=== PATIENT | female | born 2000 | race Two or more races ===

== ENCOUNTER 2023-02-23 10:52 | Outpatient (REF) | payer MEDICAID, SELFPAY ==
[2023-02-23 13:16] LABS: MANUAL DIFF FLAG NO
[2023-02-23 13:23] LABS: Basophils Absolute Auto 0.1 X10*3/uL (0.0-0.2); Eosinophils Absolute Auto 0.1 X10*3/uL (0.0-0.4); Eosinophils Percent Auto 0.8 % (0-4); Hematocrit 39.6 % (37.0-47.0); Hemoglobin 12.9 g/dl (12.0-16.0); Imm Gran Abs Auto 0.03 X10*3/uL (0.00-0.03); Imm Gran Pct Auto 0.4 % (0.0-0.4); Lymphocytes Absolute Auto 2.2 X10*3/uL (1.2-4.9); Lymphocytes Percent Auto 29.9 % (20-40); Mean Corpuscular HGB Conc 32.6 g/dl (31.0-35.0); Mean Corpuscular Hemoglobin 28.6 pg (27.0-33.0); Mean Corpuscular Volume 87.8 fL (80.0-98.0); Mean Platelet Volume 10.3 fL (9.4-12.3); Monocytes Absolute Auto 0.7 X10*3/uL (0.1-1.2); Monocytes Percent Auto 9.9 % (2-11); Neutrophils Absolute Auto 4.2 x10*3/uL (2.0-8.3); Platelet Count 423 X10*3/uL (160-400); Red Blood Count 4.51 X10*6/uL (4.20-5.50); Red Cell Distribution Width 14.5 % (11.0-16.0); White Blood Count 7.3 X10*3/uL (4.8-10.8)
[2023-02-23 13:42] LABS: Estimated Average Glucose 91 mg/dL; Hemoglobin A1c % 4.8 % (<6.0)
[2023-02-23 14:09] LABS: Cholesterol 202 mg/dL (<200); HDL Cholesterol 49 mg/dL (>40); LDL Cholesterol Calculated 140 mg/dL (<100); Triglycerides 69 mg/dL (<150)
[2023-02-23 16:08] LABS: CT PCR NOT DETECTED (Not Detect.); NG PCR NOT DETECTED (Not Detect.)
[2023-02-24 03:45] LABS: ~HepC Num1 0.67 S/CO (0.00-0.79); ~Hepatitis C Antibody Nonreactive (Nonreactive)
[2023-03-02 13:14] LABS: Testosterone, Total 229 ng/dL (2-45)
== END 2023-02-23 10:53 | disposition home or self-care (01) ==
LOC: HO.HHCL 10:52
PROVIDERS: Visit Provider Family Medicine
DX: Z00.00 Encounter for general adult medical examination without abnormal findings (principal); F64.9 Gender identity disorder, unspecified
CPT/HCPCS: 0353U; 80061; 83036; 84403; 85025; 86803

== ENCOUNTER 2023-11-15 11:22 | Outpatient (REF) | payer MEDICAID, SELFPAY ==
[2023-11-15 13:17] LABS: Hematocrit 39.1 % (37.0-47.0); Hemoglobin 12.8 g/dl (12.0-16.0); Mean Corpuscular HGB Conc 32.7 g/dl (31.0-35.0); Mean Corpuscular Hemoglobin 28.8 pg (27.0-33.0); Mean Corpuscular Volume 88.1 fL (80.0-98.0); Mean Platelet Volume 10.5 fL (9.4-12.3); Platelet Count 315 X10*3/uL (160-400); Red Blood Count 4.44 X10*6/uL (4.20-5.50); Red Cell Distribution Width 13.7 % (11.0-16.0); White Blood Count 6.2 X10*3/uL (4.8-10.8)
[2023-11-15 13:38] LABS: Alanine Aminotransferase 18 U/L (0-31); Albumin Level 4.2 g/dL (3.5-5.0); Alkaline Phosphatase 78 U/L (39-117); Aspartate Amino Transferase 24 U/L (5-31); Bilirubin Direct 0.1 mg/dL (0.0-0.5); Bilirubin Total 0.4 mg/dL (0.0-1.0); Cholesterol 191 mg/dL (<200); HDL Cholesterol 36 mg/dL (>40); LDL Cholesterol Calculated 138 mg/dL (<100); Total Protein 7.2 g/dL (6.5-8.0); Triglycerides 89 mg/dL (<150)
[2023-11-15 14:51] LABS: CT PCR NOT DETECTED (Not Detect.); NG PCR NOT DETECTED (Not Detect.)
[2023-11-16 04:34] LABS: HIV AB/AG Nonreactive (Nonreactive); HIV Num 1 0.05 S/CO (0.00-0.99); ~HepC Num1 0.56 S/CO (0.00-0.79); ~Hepatitis C Antibody Nonreactive (Nonreactive)
[2023-11-20 03:13] LABS: Testosterone, Total 499 ng/dL (2-45)
== END 2023-11-15 11:23 | disposition home or self-care (01) ==
LOC: HO.HHCL 11:22
PROVIDERS: Visit Provider Family Medicine
DX: E78.5 Hyperlipidemia, unspecified (principal); F64.0 Transsexualism; Z11.3 Encounter for screening for infections with a predominantly sexual mode of transmission
CPT/HCPCS: 0353U; 36415; 80061; 80076; 84403; 85027; 86803; 87389

== ENCOUNTER 2024-06-12 12:17 | Outpatient (REF) | payer MEDICAID, SELFPAY ==
[2024-06-12 13:08] LABS: MANUAL DIFF FLAG NO
[2024-06-12 13:15] LABS: Basophils Absolute Auto 0.1 X10*3/uL (0.0-0.2); Basophils Percent Auto 1.2 % (0-2); Eosinophils Absolute Auto 0.1 X10*3/uL (0.0-0.4); Eosinophils Percent Auto 0.7 % (0-4); Hematocrit 39.7 % (37.0-47.0); Hemoglobin 12.7 g/dl (12.0-16.0); Imm Gran Abs Auto 0.02 X10*3/uL (0.00-0.03); Imm Gran Pct Auto 0.2 % (0.0-0.4); Lymphocytes Absolute Auto 3.3 X10*3/uL (1.2-4.9); Lymphocytes Percent Auto 38.7 % (20-40); Mean Corpuscular Hemoglobin 28.9 pg (27.0-33.0); Mean Corpuscular Volume 90.2 fL (80.0-98.0); Mean Platelet Volume 10.8 fL (9.4-12.3); Monocytes Absolute Auto 0.7 X10*3/uL (0.1-1.2); Monocytes Percent Auto 8.7 % (2-11); Neutrophils Absolute Auto 4.3 x10*3/uL (2.0-8.3); Neutrophils Percent Auto 50.5 % (45-73); Platelet Count 330 X10*3/uL (160-400); Red Cell Distribution Width 13.6 % (11.0-16.0); White Blood Count 8.5 X10*3/uL (4.8-10.8)
[2024-06-12 13:29] LABS: Cholesterol 232 mg/dL (<200); HDL Cholesterol 34 mg/dL (>40); LDL Cholesterol Calculated 133 mg/dL (<100); Triglycerides 326 mg/dL (<150)
[2024-06-13 04:38] LABS: HIV AB/AG Nonreactive (Nonreactive); HIV Num 1 0.05 S/CO (0.00-0.99)
== END 2024-06-12 12:18 | disposition home or self-care (01) ==
LOC: HO.HHCL 12:17
PROVIDERS: Visit Provider Family Medicine
DX: F64.9 Gender identity disorder, unspecified (principal); F64.0 Transsexualism; Z11.3 Encounter for screening for infections with a predominantly sexual mode of transmission
CPT/HCPCS: 36415; 80061; 85025; 87389

== ENCOUNTER 2025-02-26 13:08 | Outpatient (REF) | payer MEDICAID, SELFPAY ==
--- OUTSIDE RECORDS SUMMARY | 2025-02-25 11:30 | XMS_ITS | Encounter Summary ---
Author Organization [employer] Address [address] [facility] 7t [place] [address] Care Team Providers Care Contamination Consultant Name Role Phone Padmini Walton MD Primary Care Provider [phone]- [phone] Hany Davis MD Unavailable Jalyn Sheriff OD Unavailable [phone] Encounter Details Date Type Department Care Team (Late st Contact Info) Description 02/25/2025 11:30 AM EDT Telemedicine [facility] MEDICINE [address] [place] [address] Padmini Walton MD [address] [place] [address] HSV-1 infection (Primary Dx); Routine screening for STI (sexually transmitted infection); Gender dysphoria; Dyslipidemia Social History Tobacco Use Types Packs/Day Years Used Date Smoking Tobacco: Never Passive Smoke Exposure: Never Smokeless Tobacco: Never Depression Answer Date Recorded Patient Health Questionnaire-9 Score 0 02/19/2025 Patient Health Questionnaire-9 Score 0 02/19/2025 Last PHQ-9: Questionnaire Data Not on file 0 02/19/2025 Housing Stability Answer Date Recorded What is your housing situation today? I have rayo jennings 05/14/[address] you li ve. Do you have problems with any of the following? None of the above 05/14/2024 Food Insecurity Answer Date Recorded Within the past 12 months, y ou worried that your food would run out before you got money to buy more: Never True 12/17/2023 Within the past 12 months,th e food you bought just didn't last and you didn't have enough money to get more: Never True Transportation Answer Date Recorded In the past 12 months, has l ack of transportation kept you from medical appts, meetings, work or from getting things needed for daily living? No 12/17/2023 Utilities Answer Date Recorded In the past 12 months, has t he [employer], gas, oil or water [employer] threatened to shut off services in your home? No 12/17/2023 Depression Answer Date Recorded Patient Health Questionnaire-2 Score 0 02/19/2025 Internet Access Answer Date Recorded Internet Access Q1 No 02/20/2025 Internet Access Q2 I do not want or need it 01/27 Comments Unknown Sex and Gender Information Value Date Recorded Sex Assigned at Female 03/27/2022 10:20 AM EDT Legal Sex Female 1:53 PM EST Gender Identity Male 04/19/2022 1:53 PM EST Sexual Orientation Lesbian or Kumari 03/27/2022 10 :20 AM EDT documented as of this encounter Progress Notes * Padmini Walton MD - 02/25/2025 11:30 AM EDT Subjective Patient ID: Jacob Gamez is a 24 y.o. adult who was contacted for televisit for positive HSV 1 culture. Seen in ER 02/16/25 with headache but also reported vaginal rash. Vesicular rash noted on exam and he was treated for HSV infection. Culture positive for HSV-1 type infection. Symptoms resolved. Pt states only has one partner and is concerned for false positive result. His partner did have a lesion on her lip recently suggestive of HSV infection. Assessment & Plan HSV-1 infection Pt would like blood test for confirmation but he understands the history and HSV culture suggest hehad HSV 1 infection in the genital area. Harm reduction discussed. Discussed starting medication for any symptoms of recurrence. Orders: acyclovir (Zovirax) 800 MG tablet; Take 3 tabs a day for 2 days Herpes Simplex Virus 1 and 2 (IgG), Type-Specific Antibodies; Future Routine screening for STI (sexually transmitted infection) Orders: Hepatitis C Antibody with Reflex to HCV, RNA, Quantitative, Real-Time PCR; Future HIV-1/2 Antigen and Antibodies, Fourth Generation, with Reflexes; Future Syphilis Screen; Future Chlamydia/N. Gonorrhoeae, PCR, Urine Gender dysphoria Orders: Hepatic Function Panel; Future CBC; Future Testosterone, Total, males (Adult), IA; Future Dyslipidemia Orders: Lipid Panel, Standard; Future Future Appointments Date Time Provider Department Center 02/25/2025 11:30 AM Padmini Walton MD MEDICINE [facility] 04/03/2025 10:30 AM Padmini Walton MD [facility] documented in this encounter Miscellaneous Notes * Assessment & Plan Note - Padmini Walton MD - 02/25/2025 11:30 AM EDT Associated Problem(s): Gender dysphoria Orders: Hepatic Function Panel; Future CBC; Future Testosterone, Total, males (Adult), IA; Future * Assessment & Plan Note - Padmini Walton MD - 02/25/2025 11:30 AM EDT Associated Problem(s): Dyslipidemia Orders: Lipid Panel, Standard; Future documented in this encounter Plan of Treatment Upcoming Encounters Date Type Department Care Team (Late st Contact Info) Description 04/03/2025 10:30 AM EST Procedure Visit [facility] MEDICINE [address] [place] [address] Padmini Walton MD [address] [place] [address] Scheduled Orders Name Type Priority Associated Diagnoses Orde r Schedule Herpes Simplex Virus 1 and 2 (IgG), Type-Specific Antibodies Lab Routine HSV-1 infection Expected: 02/25/2025 (Approximate), Expires: 02/25/2026 Hepatic Function Panel Lab Routine Gender dysphoria Expected: 02/25/2025 (Approximate), Expires: 02/25/2026 CBC Lab Routine Gender dysphoria Expected: 02/25/2025, Expires: 02/25/2026 Testosterone, Total, males (Adult), IA Lab Routine Gender dysphoria Expected: 02/25/2025, Expires: 02/25/2026 Lipid Panel, Standard Lab Routine Dyslipidemia Expected: 02/25/2025 (Approximate), Expires: 02/25/2026 Hepatitis C Antibody with Reflex to HCV, RNA, Quantitative, Real-Time PCR Lab Routine Routine screening for STI (sexually transmitted infection) Expected: 02/25/2025 (Approximate), Expires: 02/25/2026 HIV-1/2 Antigen and Antibodies, Fourth Generation, with Reflexes Lab Routine Routine screening for STI (sexually transmitted infection) Expected: 02/25/2025 (Approximate), Expires: 02/25/2026 Syphilis Screen Lab Routine Routine screening for STI (sexually transmitted infection) Expected: 02/25/2025 (Approximate), Expires: 02/25/2026 Chlamydia/N. Gonorrhoeae, PCR, Urine Lab Routine Routine screening for STI (sexually transmitted infection) Ordered: 02/25/2025 documented as of this encounter Visit Diagnoses Diagnosis HSV-1 infection- Primary Herpes simplex without mention of complication Routine screening for STI (sexually transmitted infection) Screening examination for venereal disease Gender dysphoria Dyslipidemia Other and unspecified hyperlipidemia documented in this encounter Additional Health Concerns Assessment Noted Time PHQ-9 Depression Total Score: 0 02/20/20 25 11:40 AM EDT documented as of this encounter Care Teams Contamination Consultant Relationship Specialty Start Date End Date Padmini Walton MD [address] [place] [address] PCP - General Family Medicine 05/28/18 Hany Davis MD [address] [place] [address], [address] [place] [address] Plastic Surgery 05/13/24 Jalyn Sheriff OD [address] [place] [address] Optometry 05/13/24 documented as of this encounter
--- OUTSIDE RECORDS SUMMARY | 2025-02-26 14:35 | XMS_ITS | Encounter Summary ---
Author Organization [employer] Address [address] [facility] 7t [place] [address] Care Team Providers Care Mainspring Former Arbor End Name Role Phone Padmini Walton MD Primary Care Provider [phone] Hany Davis MD Unavailable Jalyn Sheriff OD Unavailable [phone] Reason for Visit * Reason Onset Date Comments Appointment Request 02/19/2025 Encounter Details Date Type Department Care Team (Late st Contact Info) Description 02/19/[address] [facility] MEDICINE [address] [place], [place] [phone] Padmini Walton MD [address] [place], [place] [phone] Appointment Request Social History Tobacco Use Types Packs/Day Years [...] the past 12 months, has t he [employer], gas, oil or water company threatened to shut off services in your [...] AM EDT documented as of this encounter Functional Status * Over the past 2 weeks, how often have you been bothered by any of the following problems? Question Answer Date of Assessment Author Patient Health Questionnaire -2 Score 0 02/19/2025 11:40 AM EDT Giovani Walton MD * Little interest or pleasure in doing things Answer Date of Assessment Author Not at all 02/19/2025 11:40 AM KAPILT Padmini Walton MD * Feeling down, depressed, or hopeless Answer Date of Assessment Author Not at all 02/19/2025 11:40 AM KAPILT Padmini Walton MD * Trouble falling or staying asleep, or sleeping too much Answer Date of Assessment Author Not at all 02/19/2025 11:40 AM Padmini Garza MD * Feeling tired or having little energy Answer Date of Assessment Author Not at all 02/19/2025 11:40 AM KAPILT Padmini Walton MD * Poor appetite or overeating Answer Date of Assessment Author Not at all 02/19/2025 11:40 AM EDT Padmini Walton MD * Feeling bad about yourself - or that you are a failure or have let yourself or your family down Answer Date of Assessment Author Not at all 02/19/2025 11:40 AM EDT Padmini Walton MD * Trouble concentrating on things, such as reading the newspaper or watching television Answer Date of Assessment Author Not at all 02/19/2025 11:40 AM EDT Padmini Walton MD * Moving or speaking so slowly that other people could have noticed? Or the opposite - being so fidgety or restless that you have been moving around a lot more than usual. Answer Date of Assessment Author Not at all 02/19/2025 11:40 AM EDT Padmini Walton MD * Thoughts that you would be better off or hurting yourself in some way Answer Date of Assessment Author Not at all 02/19/2025 11:40 AM EDT Padmini Walton MD * Patient Health Questionnaire-9 Score Answer Date of Assessment Author 0 02/19/2025 11:40 AM EDT Padmini Walton MD documented as of this encounter Miscellaneous Notes * Telephone Encounter - Prashanth Ashford - 02/19/2025 10:19 AM EDT Tc from pt requesting for apt today to be tele as it is raining out they can not make it but do notwant to miss apt Contact pt at [phone] documented in this encounter Plan of Treatment Upcoming Encounters Date Type Department Care Team (Late st Contact Info) Description 04/03/2025 10:30 AM EST Procedure Visit [facility] MEDICINE [address] [place], [place] [phone] Padmini Walton MD [address] [place] [address] documented as of this encounter Visit Diagnoses Not on filedocumented in this encounter Additional Health Concerns Assessment Noted Time PHQ-9 Depression Total Score: 0 02/20/20 11:40 AM EDT documented as of this encounter Care Teams [employer] Former [employer] Relationship Specialty Start Date End Date Padmini Walton MD [address] [place] [address] PCP - General Family Medicine 05/28/18 Hany Davis MD [address] [place] [address], [address] [place] [address] Plastic Surgery 05/13/24 Jalyn Sheriff OD [address] [place] [address] Optometry 05/13/24 documented as of this encounter
--- OUTSIDE RECORDS SUMMARY | 2025-02-26 14:35 | XMS_ITS | Encounter Summary ---
Author Organization [employer] Address [address] [facility] 7 [place] [address] Care Team Providers Care Behavioral Medical Director Name Role Phone Padmini Walton MD Primary Care Provider [phone]- [phone] Hany Davis MD Unavailable Jalyn Sheriff OD Unavailable [phone] Encounter Details Date Type Department Care Team (Late st Contact Info) Description 07/04/2022 Orders Only [facility] MEDICINE [address] [place] [phone] Padmini Walton MD [address] [place] [address] [phone] Gender dysphoria (Primary Dx) Social History Tobacco Use Types Packs/Day Years Used Date Smoking Tobacco: Never Assessed Comments Unknown Sex and Gender Information Value Date Recorded Sex Assigned at Female 03/27/2022 10:20 AM EDT Legal Sex Female 1:53 PM EST Gender Identity Male 04/19/2022 1:53 PM EST Sexual Orientation Lesbian or Kumari 03/27/2022 10 :20 AM EDT documented as of this encounter Plan of Treatment Upcoming Encounters Date Type Department Care Team (Late st Contact Info) Description 04/03/2025 10:30 AM EST Procedure Visit [facility] MEDICINE [address] [place] [address] Padmini Walton MD [address] [place] [address] documented as of this encounter Visit Diagnoses Diagnosis Gender dysphoria- Primary documented in this encounter Care Teams Behavioral Medical Director Relationship Specialty Start Date End Date Padmini Walton MD [address] [place] [address] PCP - General Family Medicine 05/28/18 Hany Davis MD [address] [place] [address], [address] [place] [address] Plastic Surgery 05/13/24 Jalyn Sheriff OD [address] [place] [address] Optometry 05/13/24 documented as of this encounter
--- OUTSIDE RECORDS SUMMARY | 2025-02-26 14:35 | XMS_ITS | Encounter Summary ---
Author Organization [employer] Address [address] [facility] 7t [place] [address] Care Team Providers Care Healthcare Administrator Name Role Phone Padmini Walton MD Primary Care Provider [phone]- [phone] Hany Davis MD Unavailable Jalyn Sheriff OD Unavailable [phone] Reason for Visit * Reason Onset Date Comments Med Refill 02/25/2025 Encounter Details Date Type Department Care Team (Late st Contact Info) Description 02/25/2025 Refill [facility] MEDICINE [address] [place], [place] [phone] Padmini Walton MD [address] [place] [address] Gender dysphoria Social History Tobacco Use Types Packs/Day Years [...] the past 12 months, has t he electric, gas, oil or water company threatened to [...] Description 04/03/2025 10:30 AM EST Procedure Visit [facility] MEDICINE [address] [place] [address] Padmini Walton MD [address] [place] [address] documented as of this encounter Visit Diagnoses Diagnosis Gender dysphoria documented in this encounter Additional Health Concerns Assessment Noted Time PHQ-9 Depression Total Score: 0 02/20/20 25 11:40 AM EDT documented as of this encounter Care Teams Healthcare Administrator Relationship Specialty Start Date End Date Padmini Waltno MD [address] [place] [address] PCP - General Family Medicine 05/28/18 Hany Davis MD [address] [place] [address], [address] [phone] Plastic Surgery 05/13/24 Jalyn Sheriff OD [address] [place] [address] Optometry 05/13/24 documented as of this encounter
--- OUTSIDE RECORDS SUMMARY | 2025-02-26 14:35 | XMS_ITS | Encounter Summary ---
Author Organization [employer] Address [address] [facility] 7t [place] [address] Care Team Providers Care Machine Shop Worker Name Role Phone Padmini Walton MD Primary Care Provider [phone]- [phone] Hany Davis MD Unavailable Jalyn Sheriff OD Unavailable [phone] Reason for Visit * Reason Onset Date Comments Med Refill 08/10/2023 Encounter Details Date Type Department Care Team (Late st Contact Info) Description 08/10/2023 Telephone [facility] MEDICINE [address] [place], [place] [phone] Padmini Walton MD [address] [place], [place] [phone] Med Refill Social History Tobacco Use Types Packs/Day Years Used Date Smoking Tobacco: Never Passive Smoke Exposure: Never Smokeless Tobacco: Never Depression Answer Date Recorded Patient Health Questionnaire-9 Score 2 12/11/2022 Housing Stability Answer Date Recorded What is your housing situation today? I have rayo jennings 03/12/[address] you li ve. Do you have problems with any of the following? None of the above 03/12/2023 Food Insecurity Answer Date Recorded Within the past 12 months, y ou worried that your food would run out before you got money to buy more: Never True 03/12/2023 Within the past 12 months,th e food you bought just didn't last and you didn't have enough money to get more: Never True Transportation Answer Date Recorded In the past 12 months, has l ack of transportation kept you from medical appts, meetings, work or from getting things needed for daily living? No 03/12/2023 Utilities Answer Date Recorded In the past 12 months, has t he electric, gas, oil or water company threatened to shut off services in your home? No 03/12/2023 Depression Answer Date Recorded Patient Health Questionnaire-2 Score 2 12/11/2022 Comments Unknown Sex and Gender Information Value Date Recorded Sex Assigned at Female 03/27/2022 10:20 AM EDT Legal Sex Female 1:53 PM EST Gender Identity Male 04/19/2022 1:53 PM EST Sexual Orientation Lesbian or Kumari 03/27/2022 10 :20 AM EDT documented as of this encounter Miscellaneous Notes * Telephone Encounter - Madisyn Fuentes LPN - 08/10/2023 9:35 AM EDT Medication was sent to [id number] on 06/13/23 with 3 refills. * Telephone Encounter - Anirudh Chung - 08/10/2023 9:23 AM EDT TC from pt requesting medication refill. Medications needing refill : testosterone cypionate (Depo-Testosterone) 200 MG/ML injection To be sent to: [id number] - [place], [place] - [address] [place] [address] documented in this encounter Plan of Treatment Upcoming Encounters Date Type Department Care Team ([facility] st Contact Info) Description 04/03/2025 10:30 AM EST Procedure Visit [facility] MEDICINE [address] [place], [place] [phone] Padmini Walton MD [address] [place] [address] documented as of this encounter Visit Diagnoses Not on filedocumented in this encounter Additional Health Concerns Assessment Noted Time PHQ-9 Depression Total Score: 2 12/12/19 23 11:45 AM EDT documented as of this encounter Care Teams Machine Shop Worker Relationship Specialty Start Date End Date Padmini Walton MD [address] [place] [address] PCP - General Family Medicine 05/28/18 Hany Davis MD [address] [place] [address], [address] [address] Plastic Surgery 05/13/24 Jalyn Sheriff OD [address] [place] [address] Optometry 05/13/24 documented as of this encounter
--- OUTSIDE RECORDS SUMMARY | 2025-02-26 14:35 | XMS_ITS | Encounter Summary ---
Author Organization [employer] Address [address] [facility] 7t [place] [address] Care Team Providers Care Marketing Operations Assistant Name Role Phone Padmini Walton MD Primary Care Provider [phone]- [phone] Hany Davis MD Unavailable Jalyn Sheriff OD Unavailable [phone] Encounter Details Date Type Department Care Team (Late st Contact Info) Description 04/19/2022 Abstract [facility] [address] [place], [place] [phone] Padmini Walton MD [address] [place] [address] [phone] Allergic rhinitis, unspecified seasonality, unspecified trigger (Primary Dx) Social History Tobacco Use Types [...] Encounters Date Type Department Care Team (Late Contact Info) Description 04/03/2025 10:30 AM EST Procedure Visit [facility] MEDICINE [address] [place] [address] Padmini Walton MD [address] [place] [address] documented as of this encounter Visit Diagnoses Diagnosis Allergic rhinitis, unspecified seasonality, unspecified trigger- Primary documented in this encounter Care Teams Marketing Operations Assistant Relationship Specialty Start Date End Date Padmini Walton MD [address] [place] [address] PCP - General Family Medicine 05/28/18 Hany Davis MD [address] [place] [address], [address] [place] [address] Plastic Surgery 05/13/24 Jalyn Sheriff OD [address] [place] [address] Optometry 05/13/24 documented as of this encounter
--- OUTSIDE RECORDS SUMMARY | 2025-02-26 14:35 | XMS_ITS | Clinical Summary ---
Author Organization [employer] Address [address] [place] [address] Care Team Providers Care Safety Coordinator Name Role Phone Padmini Walton MD Primary Care Provider [phone] Hany Davis MD Unavailable Jalyn Sheriff OD Unavailable [phone] Allergies Active Allergy Reactions Criticality Noted Date Comments Mushroom Extract Complex (Obsolete) Wheezing 02/26/2023 Medications * This document contains information received from the source organization and may not represent a complete record from that organization. Mometasone Furoate (Asmanex HFA) 200 MCG/ACT aerosolIndicati ons:Mild intermittent asthma without complication INHALE 2 PUFFS BY MOUTH TWICE A DAY 13 g 1 024 Active albuterol 108 (90 Base) MCG/ACT inhalerIndicati ons:Mild intermittent asthma without complication INHALE 2 PUFFS BY MOUTH EVERY 4 HOURS IF NEEDED 18 g 1 024 Active fluticasone (Flovent HFA) 220 MCG/ACT inhalerIndicati ons:Mild intermittent asthma without complication 1 SPRAY EACH NOSTRIL DAILY NEEDED ALLERGIES 12 g 1 024 Active Blood Pressure kitIndications: Elevated blood pressure reading Check valentina three times a week 1 kit 024 Active Needle, Disp, (B-D DISP NEEDLE 25GX1 ) 25G X 1 miscIndications :Gender dysphoria USE TO INJECT TESTOSTERONE 30 each 11 024 Active Syringe, Disposable, (Syringe 2-3 ML) 3 ML miscIndications :Gender dysphoria 1 each every 14 (fourteen) days. 24 each 11 025 Active acyclovir (Zovirax) 800 MG tabletIndicatio ns:Herpes Simplex Infection Take 3 tabs a day for 2 days 6 tablet 1 Active testosterone cypionate (Depo-Testoster one) 200 MG/ML injectionIndica tions:Gender dysphoria INJECT 0.5 MILLILITER BY INTRAMUSCULAR ROUTE EVERY 2 WEEKS Single use vials 3 mL 1 Active Needle, Disp, (B-D BLUNT FILL NEEDLE) 18G X 1-1/2 miscIndications :Gender dysphoria 1 each every 14 (fourteen) days. 24 each 3 025 Active fish oil-omega-3 fatty acids 1000 MG capsuleIndicati ons:Dyslipidemi a Take 1 capsule (1 g) by mouth 2 times daily. 180 capsule 3 025 2024 Discontinued(M ed list cleanup (will not trigger notification to Pharmacy)) testosterone cypionate (Depo-Testoster one) 200 MG/ML injectionIndica tions:Gender dysphoria INJECT 0.5 MILLILITER BY INTRAMUSCULAR ROUTE EVERY 2 WEEKS Single use vials 3 mL 1 025 2024 Discontinued(R eorder (will not trigger notification to Pharmacy)) Needle, Disp, (B-D BLUNT FILL NEEDLE) 18G X 1-1/2 miscIndications :Gender dysphoria 1 each every 14 (fourteen) days. 24 each 3 025 2024 Discontinued(R eorder (will not trigger notification to Pharmacy)) Active Problems Problem Noted Date Diagnosed Date Gender dysphoria 05/14/2024 Overview (02/19/2025): Pt reports today he is going by Jacob and uses he/him pronouns. Jacob meets DSM-5 criteria for gender dysphoria. They have expressed a persistent and well- documented experience of incongruence between their gender identity and assigned sex at . Jacob has has demonstrated capacity to make informed decisions regarding hormone therapy. They are aware of the potential risks, benefits, and irreversible effects of treatment. Jacob has no contraindications identified for initiating hormone therapy per the Endocrine Society 2017 Guidelines Endocrine Treatment of Gender-Dysphoric/Gender Incongruent Persons . He has lived as male since prior to 2021. -education reviewed: we reviewed our informed consent that includes expected physical changes, timeline, and reversible and irreversible effects including but not limited to: deepening voice, increased muscle mass, amenorrhea, increased body hair, enlargement of clitoris, and mood effects. -we reviewed fertility preservation options; patient declined egg banking -discussed impact on fertility as well as need for contraception if with a partner who is capable of producing sperm -provided written informed consent for hormone therapy -reinforced importance of medication adherence and follow-up -reviewed need for baseline labs and regular monitoring; expected time lines in terms of desired effects -baseline labs ordered -currently on testosterone cypionate 200mg/ml at 0.5mL [id number], started 12/28/2021, restarted 09/14/24 -Labs 1m after starting, Testosterone level was 499, 11/15/23 -s/p mastectomy for chest reconstruction 02/28/2023 -given paperwork for legal name change 12/17/23 -discussed stopping testosterone to evaluate freezing eggs, given phone number of [employer] and [place], [place] - Prescribed Syringe, Disposable, (Syringe 2-3 ML) [address] [facility] 05/14/24 - Prescribed Needle, Disp, (B-D BLUNT FILL NEEDLE) 18G X 1-1/2 [facility] 05/14/24 - Counseled on oocyte cryopreservation. Given phone number to [employer]. 11/12/24 -has private sperm donor, enquires about legal actions, encouraged to seek legal advice 02/19/25 Assessment & Plan (02/25/2025 12:00 PM EDT): Orders: Hepatic Function Panel; Future CBC; Future Testosterone, Total, males (Adult), [place]; Future Assessment & Plan (02/19/2025 11:47 AM EDT): Pt reports today he is going by Jacob and uses he/him pronouns. Jacob meets DSM-5 criteria for gender dysphoria. They have expressed a persistent and well- documented experience of incongruence between their gender identity and assigned sex at . Jacob has has demonstrated capacity to make informed decisions regarding hormone therapy. They are aware of the potential risks, benefits, and irreversible effects of treatment. Jacob has no contraindications identified for initiating hormone therapy per the Endocrine Society 2017 Guidelines Endocrine Treatment of Gender-Dysphoric/Gender Incongruent Persons . He has lived as male since prior to 2021. -education reviewed: we reviewed our informed consent that includes expected physical changes, timeline, and reversible and irreversible effects including but not limited to: deepening voice, increased muscle mass, amenorrhea, increased body hair, enlargement of clitoris, and mood effects. -we reviewed fertility preservation options; patient declined egg banking -discussed impact on fertility as well as need for contraception if with a partner who is capable of producing sperm -provided written informed consent for hormone therapy -reinforced importance of medication adherence and follow-up -reviewed need for baseline labs and regular monitoring; expected time lines in terms of desired effects -baseline labs ordered -currently on testosterone cypionate 200mg/ml at 0.5mL s6ciomc, started 12/28/2021, restarted 09/14/24 -Labs 1m after starting, Testosterone level was 499, 11/15/23 -s/p mastectomy for chest reconstruction 02/28/2023 -given paperwork for legal name change 12/17/23 -discussed stopping testosterone to evaluate freezing eggs, given phone number of [employer] and [facility] [place] - Prescribed Syringe, Disposable, (Syringe 2-3 ML) [address] [facility] 05/14/24 - Prescribed Needle, Disp, (B-D BLUNT FILL NEEDLE) 18G X 1-/ [facility] 05/14/24 - Counseled on oocyte cryopreservation. Given phone number to [employer] [facility]. 11/12/24 -has private sperm donor, enquires about legal actions, encouraged to seek legal advice 02/19/25 Assessment & Plan (11/14/2024 8:34 AM EDT): Pt reports today he is going by Jacob and uses he/him pronouns. Jacob meets DSM-5 criteria for gender dysphoria. They have expressed a persistent and well- documented experience of incongruence between their gender identity and assigned sex at . Jacob has has demonstrated capacity to make informed decisions regarding hormone therapy. They are aware of the potential risks, benefits, and irreversible effects of treatment. Jacob has no contraindications identified for initiating hormone therapy per the Endocrine Society 2017 Guidelines Endocrine Treatment of Gender-Dysphoric/Gender Incongruent Persons . He has lived as male since prior to 2021. -education reviewed: we reviewed our informed consent that includes expected physical changes, timeline, and reversible and irreversible effects including but not limited to: deepening voice, increased muscle mass, amenorrhea, increased body hair, enlargement of clitoris, and mood effects. -we reviewed fertility preservation options; patient declined egg banking -discussed impact on fertility as well as need for contraception if with a partner who is capable of producing sperm -provided written informed consent for hormone therapy -reinforced importance of medication adherence and follow-up -reviewed need for baseline labs and regular monitoring; expected time lines in terms of desired effects -baseline labs ordered -currently on testosterone cypionate 200mg/ml at 0.5mL q6oarsw, started 12/28/2021, restarted 09/14/24 -Labs 1m after starting, Testosterone level was 499, 11/15/23 -s/p mastectomy for chest reconstruction 02/28/2023 -given paperwork for legal name change 12/17/23 -discussed stopping testosterone to evaluate freezing eggs, given phone number of [employer] and [facility] [place] - Prescribed Syringe, Disposable, (Syringe 2-3 ML) [address] [facility] 05/14/24 - Prescribed Needle, Disp, (B-D BLUNT FILL NEEDLE) 18G X 1-1/2 [facility] 05/14/24 - Counseled on oocyte cryopreservation. Given phone number to [employer] [facility]. 11/12/24 Assessment & Plan (05/14/2024 3:55 PM EST): Pt reports today he is going by Jacob and uses he/him pronouns for > 1 year. We discussed terminology, Transgender identity, and how we can support him. He wishes to continue to discuss his options with me. For now he is socially transitioning with name and pronouns with family and friends. -currently on testosterone cypionate 200mg/ml at 0.5mL [id number], started 12/28/2021 -Labs 1m after starting, Testosterone level was 499, 11/15/23 -Pt ran out of needles, he will come here for injections. -s/p mastectomy for chest reconstruction 02/28/2023 -given paperwork for legal name change 12/17/23 -discussed stopping testosterone to evaluate freezing eggs, given phone number of [employer] [facility]. - Prescribed Syringe, Disposable, (Syringe 2-3 ML) [facility] - Prescribed Needle, Disp, (B-D BLUNT FILL NEEDLE) 18G X 1-1/2 misc 05/14/24 Elevated blood pressure reading 05/14/2024 Overview (05/14/2024): - Prescribed Blood Pressure Kit 05/14/24 Assessment & Plan (05/14/2024 3:59 PM EST): - Prescribed Blood Pressure Kit 05/14/24 HUGH (generalized anxiety disorder) 12/19/2023 Cannabis use disorder 12/19/2023 Other specified health status 12/11/2022 Overview (12/17/2023): -next physical exam due after 12/16/24 -eye care facilitated by kenroy Dc new referral to [facility], referral placed 12/17/23 -dental, on waitlist at [facility] -health care proxy filed 12/17/23 Assessment & Plan (12/17/2023 10:04 AM EDT): -next physical exam due after 12/16/24 -eye care facilitated by Ashwin rodrigues wants new referral to [facility], referral placed 12/17/23 -dental, on waitlist at [facility] -health care proxy filed 12/17/23 Assessment & Plan (12/11/2022 12:08 PM EDT): -next physical exam due after -eye care facilitated by Ashwin rodrigues. -dental home is Chronic back pain 12/11/2022 Overview (12/11/2022): Referral to Pt placed 12/11/2022. Assessment & Plan (12/11/2022 12:22 PM EDT): Referral to Pt placed 12/11/2022. Dyslipidemia 04/18/2022 Overview (02/19/2025): Lab Results Component Value Date CHOL 232 (H) 06/12/2024 CHOL 191 11/15/2023 CHOL 202 (H) 02/23/2023 TRIG 326 (H) 06/12/2024 TRIG 89 11/15/2023 TRIG 69 02/23/2023 HDL 34 (L) 06/12/2024 HDL 36 (L) 11/15/2023 HDL 49 02/23/2023 LDLCHOLCAL 133 (H) 06/12/2024 LDLCHOLCAL 138 (H) 11/15/2023 LDLCHOLCAL 140 (H) 02/23/2023 -continue lifestyle modification -fish oil started 06/13/24 -recheck flp in 3 months Assessment & Plan (02/25/2025 12:00 PM EDT): Orders: Lipid Panel, Standard; Future Assessment & Plan (05/14/2024 3:54 PM EST): Lab Results Component Value Date CHOL 191 11/15/2023 CHOL 202 (H) 02/23/2023 TRIG 89 11/15/2023 TRIG 69 02/23/2023 HDL 36 (L) 11/15/2023 HDL 49 02/23/2023 LDLCHOLCAL 138 (H) 11/15/2023 LDLCHOLCAL 140 (H) 02/23/2023 -continue lifestyle modification - Ordered Lipid Panel for July 2024 05/14/24 Assessment & Plan (12/17/2023 10:20 AM EDT): Lab Results Component Value Date CHOL 191 11/15/2023 CHOL 202 (H) 02/23/2023 TRIG 89 11/15/2023 TRIG 69 02/23/2023 HDL 36 (L) 11/15/2023 HDL 49 02/23/2023 LDLCHOLCAL 138 (H) 11/15/2023 LDLCHOLCAL 140 (H) 02/23/2023 -continue lifestyle modification Assessment & Plan (10/25/2023 12:32 PM EDT): Lab Results Component Value Date CHOL 202 (H) 02/23/2023 TRIG 69 02/23/2023 HDL 49 02/23/2023 LDLCHOLCAL 140 (H) 02/23/2023 -continue lifestyle modification Polycystic ovary syndrome 04/18/2022 Vitamin D deficiency 04/18/2022 Overview (01/30/2025): No results found for: [id number] Mild intermittent asthma 02/26/2017 Overview (12/17/2023): -well controlled -continue Albuterol PRN Assessment & Plan (11/14/2024 8:34 AM EDT): -well controlled -continue Albuterol PRN Assessment & Plan (12/17/2023 9:49 AM EDT): -well controlled -continue Albuterol PRN Assessment & Plan (10/25/2023 12:32 PM EDT): Well controlled. Continue current medications. Assessment & Plan (02/20/2023 3:13 PM EDT): No recent exacerbations. Reports using inhalers infrequently. Discussed need to use Flovent daily to prevent exacerbations, agreeable to do so going forward. Allergic rhinitis 02/29/2012 Overview (12/17/2023): -continue fluticasone PRN Assessment & Plan (12/17/2023 10:13 AM EDT): -continue fluticasone PRN Attention deficit hyperactivity disorder 012 Overview (12/12/2023): Difficulty with concentration. Dx in school. Assessment & Plan (12/17/2023 10:12 AM EDT): Difficulty with concentration. Dx in school. Obstructive sleep apnea syndrome 02/29/2012 Resolved Problems Problem Noted Date Diagnosed Date Resolved Date Physical exam 12/17/2023 05/13/2024 Anxiety and depression 12/17/202312/16 Moderate major depression (CMS/HCC) 12/17/2023 05/14/2024 Overview (12/17/2023): -screening tested positive for anxiety and depression -denies suicidial or homacidial ideation -referred to [facility] 12/17/23 Assessment & Plan (12/17/2023 5:04 PM EDT): -screening tested positive for anxiety and depression -denies suicidial or homacidial ideation -referred to [facility] 12/17/23 Preoperative examination 02/20/202311/2022 Assessment & Plan (02/20/2023 3:02 PM EDT): Patient is here for a preoperative exam Patient is scheduled for: bilateral mastectomy On: 02/28/2023 By: Dr Hany Davis [facility] Anesthesia: General After careful review of patient's most recent notes, NO recent labs ( not required by surgeon ) EKG: NSR, No st t changes , Normal EKG And today's Physical examination I do not see any contraindication for patient to undergo this: intermediate Risk surgical intervention. Patient has been advised to follow up after the procedure has been completed Increased body mass index 02/29/2012 Encounters Date Type Department Care Team Description 02/26/2025 Refill [facility] [address] [place] [phone] Padmini Walton MD Gender dysphoria 02/25/2025 11:30 AM EDT Telemedicine [facility] [address] [place] [phone] Padmini Walton MD HSV-1 infection (Primary Dx); Routine screening for STI (sexually transmitted infection); Gender dysphoria; Dyslipidemia 02/25/2025 Refill [facility] [address] [place] [address] Padmini Walton MD Gender dysphoria 02/25/2025 Travel 02/19/2025 11:15 AM EDT Telemedicine [facility] [address] [place] [phone] Padmini Walton MD Gender dysphoria (Primary Dx) 02/19/[address] [phone] Padmini Walton MD Appointment Request 02/18/2025 Telephone [facility] [address] [place] [phone] [place] 02/16/[address] [address] Padmini Walton MD No Show 02/16/[address] [address] Padmini Walton MD Nurse Triage 01/29/2025 Travel 01/16/[address] [phone] Padmini Walton MD Labs Only 01/15/2025 Telephone [facility] [address] [place] [phone] Padmini Walton MD 12/08/[address] [address] Padmini Walton MD Gender dysphoria from Last 3 Months Immunizations Immunization Administration Dates Next Due DTaP 08/24/2006, 4,02/05/2003,11/10,2002 HPV 9-Valent 09/21/2015,03/18/2015 HPV, Bivalent 05/13/2012 Hep A, ped/adol, 2 dose 05/02/2018,05/04/2016 Hep B, Adolescent or Pediatric 02/02/2003,2002,2002 Hib (HbOC) 09/01/2003,2002,2002 IPV 08/24/2006, 3,2002,09/08 Influenza injectable quadriv alent preservative free 02/20/2023,03/09/2022,07/11/2021,07/01,05/10/2019,02/19/2019,05/02/2018 ,05/04/2016 Influenza, IIV3, injectable 02/18/2010 Influenza, Split (incl. oliva fied surface antigen) 05/13/2012 Influenza, injectable, quadr ivalent, preservative free, pediatric 03/18/2015,04/06/2014 Influenza, seasonal, injecta ble, preservative free 05/14/2024 MMR 08/27/2006,09/01/2003 Meningococcal MCV4P [id number]-135 02/19/2019,03/18/20 15 Pfizer Covid-19 Vaccine 12+ 05/14/2024,0 06/15/2021,11/08/2020,10/18 Pneumococcal Conjugate PCV 20 12/17/2023 Pneumococcal Conjugate PCV 7 02/05/2003,11/11/19 03,2002 Tdap 03/18/2015 Varicella 08/27/2006,09/01/2003 Family History Medical History Relation Name Comments Asthma Brother Asthma Sister Relation Name Status Comments Brother Sister Social History Tobacco Use Types Packs/Day Years Used Date Smoking Tobacco: Never Passive Smoke Exposure: Never Smokeless Tobacco: Never Tobacco Cessation:Counseling Given: Not Answered Depression Answer Date Recorded Patient Health Questionnaire-9 [...] want or need it 01/27 Comments Unknown Intention Date Recorded Wants to become (finding) 11/12 Sex and Gender Information Value Date Recorded Sex Assigned at Female 03/27/2022 10:20 AM EDT Legal Sex Female 1:53 PM EST Gender Identity Male 04/19/2022 1:53 PM EST Sexual Orientation Lesbian or Kumari 03/27/2022 10 :20 AM EDT Last Filed Vital Signs Vital Sign Reading Time Taken Comments Blood Pressure 137/82 05/14/2024 3:28 PM EST Pulse 63 05/14/2024 3:28 PM EST Temperature 36.1 C (97 F) 05/14/2024 3:28 PM EST Respiratory Rate 20 05/14/2024 3:28 PM EST Oxygen Saturation 98% 05/14/2024 3:28 PM EST Inhaled Oxygen Concentration - - Weight 73.7 kg (162 lb 6.4 oz) 05/14/2024 3:28 P M EST Height 158.1 cm (5' 2.25 ) 05/14/2024 3:28 PM ES T Body Mass Index 29.47 05/14/2024 3:28 PM EST Plan of Treatment Upcoming Encounters Date Type Department Care Team (Late st Contact Info) Description 04/03/2025 10:30 AM EST Procedure Visit [facility] [address] [place] [address] Padmini Walton MD [address] [place] [address] Health Maintenance Due Date Last Done Comments Dental Oral Exam 2002 Dental Prophylaxis 2002 Dental X-Ray: Bitewings 2002 Dental X-Ray: Full Mouth 2002 Pap Smear 2023 Chlamydia and Gonorrhea Screening 11/14/2024 11/15/2023, 02/23/2023, 07/11/2021, Additional history exists Influenza Vaccine (#1) 2025 , 02/20/2023, 03/09/2022, Additional history exists DTaP/Tdap/Td Vaccines (7 - Td or Tdap) 03/18/2025 03/18/2015, 08/24/2006, 09/01/2003, Additional history exists Family Planning (PISQ) 11/12/2025 11/12/2024 Meningococcal B Vaccine (1 of 2 - Standard) 11/12/2025 Postponed from 2018 (Other Medical Reasons) Disability Screening 01/29/2026 01/29/2025 Depression Screening 02/19/2026 02/19/2025, 02/20/20 Alcohol/Substance Use Screening 02/20/2026 02/20/2025 SDOH Screening 02/20/2026 02/20/2025 Tobacco Screening 02/25/2026 02/25/2025 Zoster Vaccines (1 of 2) 2052 RSV Patients and Patients Aged 60 years or older (1 - 1-dose 75+ series) 2077 Hepatitis B Vaccines Completed 02/02/2003, 2002, 2002 HIB Vaccines Completed 09/01/2003, 10/26, 2002 IPV Vaccines Completed 08/24/2006, 01/26, 2002, Additional history exists HPV Vaccines Completed 09/21/2015, 02/26, 05/13/2012 Hepatitis A Vaccines Completed 05/02/2018, 05/04/20 16 Meningococcal Vaccine Completed 02/19/2019, 015 Hepatitis C Screening Completed 11/15/2023 , 02/23/2023, 07/01/2020 Pneumococcal Vaccine: Pediatrics (0 to 5 Years) and At-Risk Patients (6 to 49) Years Completed 12/17/2023, 02/05/2003, 2002, Additional history exists COVID-19 Vaccine Completed 05/14/2024, , 11/08/2020, Additional history exists HIV Screening Completed 06/12/2024, 10/27, 07/11/2021, Additional history exists RSV under 20 months Aged Out No longe r eligible based on patient's age to complete this topic Rotavirus Vaccines Aged Out No longer eligible based on patient's age to complete this topic Procedures Procedure Name Priority Date/Time Associated Diagnosis Comments HIV 1/2 ANTIGEN/ANTIBODY, FOURTH GENERATION W/RFL Routine 06/12/2024 12:20 PM EST Routine screening for STI (sexually transmitted infection) HEPATITIS C AB W/REFL TO HCV RNA, QN, PCR Routine 11/15/2023 11:29 AM EDT Routine screening for STI (sexually transmitted infection) CHLAMYDIA/N. GONORRHOEAE RNA, TMA, UROGENITAL Routine 11/15/2023 11:29 AM EDT Routine screening for STI (sexually transmitted infection) from Last 3 Months or Most Recently Relevant to Health Maintenance Results * HIV-1/2 Antigen and Antibodies, Fourth Generation, with Reflexes (06/12/2024 12:20 PM EST) [facility] HIV AB/AG Nonreactive Nonreactive [facility] Comment:HIV-1 p24 Ag and/or HIV-1/HIV-2 Ab not detected.A test result that is nonreactive does not exclude thepossibility of exposure to or infection with HIV-1 and/orHIV-2. Nonreactive results in this assay for individualswith prior exposure to HIV-1 and/or HIV-2 may be due toantigen and antibody levels that are below the limit ofdetection of this assay.The [employer] HIV Ag/Ab Combo assay result andsupplemental assay results should be interpreted inconjunction with the patient's clinical presentation,history and other laboratory results. If the results areinconsistent with clinical evidence, additional testing issuggested to confirm the result. Blood Venous blood specimen / Unknown 06/12/2024 12:20 PM EST 06/12/2024 1:03 PM EST Padmini Walton MD LAB BLOOD ORDERABLES Final Result [facility] [address] [place] [phone] * Hepatitis C Antibody with Reflex to HCV, RNA, Quantitative, Real-Time PCR (11/15/2023 11:29 AM EDT) Pathologist [facility] Hepatitis C Antibody Nonreactive Nonreactive [facility] Comment:Antibodies to HCV no t detected; does not exclude early acuteHCV infection. Blood Venous blood specimen / Unknown 11/15/2023 11:29 AM EDT 11/15/2023 1:01 PM EDT Padmini Walton MD LAB BLOOD ORDERABLES Final Result Performing Organization Address [facility] Co de Phone Number [facility] [address] [place] [phone] * Chlamydia/N. Gonorrhoeae RNA, TMA, Urine (11/15/2023 11:29 AM EDT) [facility] CT PCR NOT DETECTED Not Detect. [facility] Comment:A not detected test result does not exclude the possibilityof infection because test results can be affected byimproper specimen collection, concurrent antibiotic therapy,or the number of organisms in the specimen which may bebelow the sensitivity of the test. As with many diagnostictests, results from the Xpert CT/NG assay should beinterpreted in conjunction with other laboratory andclinical data available to the clinician.Xpert CT/NG performance has not been evaluated in patientsless than 14 years of age. The assay should not be used forthe evaluationof suspected sexual abuse or for other medico-legalindications. Additional testing is recommended in anycircumstance when false positive or false negative resultscould lead to adverse medical, social or psychologicalconsequences. NG PCR NOT DETECTED Not Detect. [facility] Comment:A not detected test result does not exclude the possibilityof infection because test results can be affected byimproper specimen collection, concurrent antibiotic therapy,or the number of organisms in the specimen which may bebelow the sensitivity of the test. As with many diagnostictests, results from the Xpert CT/NG assay should beinterpreted in conjunction with other laboratory andclinical data available to the clinician.Xpert CT/NG performance has not been evaluated in patientsless than 14 years of age. The assay should not be used forthe evaluationof suspected sexual abuse or for other medico-legalindications. Additional testing is recommended in anycircumstance when false positive or false negative resultscould lead to adverse medical, social or psychologicalconsequences. Urine, Random 11/15/2023 11: 29 AM EDT 11/15/2023 1:03 PM EDT Narrative [facility] - 11/15/2023 2:52 PM EDT Urine Padmini Walton MD LAB MICROBIOLOGY - GENERAL ORDERABLES Final Result [facility] [address] [place] [address] [phone] from Last 3 Months or Most Recently Relevant to Health Maintenance [place] [id number] [facility] STANDARD DENTAL-[facility] MEDICAID STAND ADULT Advance Directives Documents on File Type Date Recorded Patient Social Media Analyst Expl anation Advance Directives and Living Will 12/17/2023 Health Care Proxy 12/17/23 Care Teams Safety Coordinator Relationship Specialty Start Date End Date Trinity, MD Padmini [address] [place] [address] PCP - General Family Medicine 05/28/18 Hany Davis MD [address] [place] [address], [address] [place] [address] Plastic Surgery 05/13/24 Jalyn Sheriff OD [address] [place] [address] Optometry 05/13/24
--- OUTSIDE RECORDS SUMMARY | 2025-02-26 14:35 | XMS_ITS | Encounter Summary ---
Author Organization [employer] Address [address] [facility] 7t [place] [address] Care Team Providers Care Sqe Name Role Phone Padmini Walton MD Primary Care Provider [phone]- [phone] Hany Davis MD Unavailable Jalyn Sheriff OD Unavailable [phone] Reason for Visit * Reason Onset Date Comments Appointment Request 08/29/2023 Encounter Details Date Type Department Care Team (Late st Contact Info) Description 08/29/2023 Telephone [facility] [address] [place], [place] [phone] Padmini Walton MD [address] [place], [place] [phone] Appointment Request Social History Tobacco Use Types [...] encounter Miscellaneous Notes * Telephone Encounter - Ethel Cisse - 08/29/2023 2:44 PM EDT Tc from pt requesting Telehealth appt, no concerns at the moment. documented in this encounter Plan of Treatment Upcoming Encounters Date Type Department Care Team (Late st Contact Info) Description 04/03/2025 10:30 AM EST Procedure Visit [facility] [address] [place] [address] Padmini Walton MD [address] [place] [address] documented as of this encounter Visit Diagnoses Not on filedocumented in this encounter Additional Health Concerns Assessment Noted Time PHQ-9 Depression Total Score: 2 12/12/19 23 11:45 AM EDT documented as of this encounter Care Teams Sqe Relationship Specialty Start Date End Date Padmini Walton MD [address] [place] [address] PCP - General Family Medicine 05/28/18 Hany Davis MD [address] [place] [address], [address] [place] [address] Plastic Surgery 05/13/24 Jalyn Sheriff OD [address] [place] [address] Optometry 05/13/24 documented as of this encounter
--- OUTSIDE RECORDS SUMMARY | 2025-02-26 14:35 | XMS_ITS | Clinical Summary ---
Author Organization [facility] Address [address] [place] [address] Phone Care Team Providers Care Independent Jeweler Name Role Phone Physician, No Pcp Primary Care Provider Unavaila ble Allergies No known active allergies Medications aspirin-acetami nophen-caffeine (EXCEDRIN MIGRAINE) 250-250-65 mg per tablet Take 1 tablet by mouth every 6 (six) hours if needed for headaches for up to 10 days. 30 tablet 5 02/27/20 25 Active valACYclovir (VALTREX) 1 gram tablet Take 1 tablet (1,000 mg total) by mouth 3 (three) times a day for 14 days. 20 tablet 5 03/02/20 25 Active Encounters Date Type Department Care Team Description 02/16/2025 2:07 PM EDT - 02/16/2025 3:50 PM EDT Emergency [facility] Emergency [address] [place] [phone] Rogers Pennington MD Herpes (Primary Dx); Nonintractable headache, unspecified chronicity pattern, unspecified headache type Discharge Disposition: Home or Self Care from Last 3 Months Medical History Medical History Date Comments Asthma Social History Tobacco Use Types Packs/Day Years Used Date Smoking Tobacco: Never Smokeless Tobacco: Never Tobacco Cessation:Counseling Given: Not Answered Comments Unknown Sex and Gender Information Value Date Recorded Sex Assigned at Female 02/16/2025 1:02 PM EDT Legal Sex Female 2:08 AM EST Gender Identity Male 02/16/2025 1:02 PM EDT Sexual Orientation Not on file Obstetrics History Last Filed Vital Signs Vital Sign Reading Time Taken Comments Blood Pressure 108/65 02/16/2025 11:51 AM EDT Pulse 59 02/16/2025 11:51 AM EDT Temperature 36.8 C (98.3 F) 02/16/2025 11:51 AM EDT Respiratory Rate 18 02/16/2025 11:51 AM EDT Oxygen Saturation 100% 02/16/2025 11:51 AM EDT Inhaled Oxygen Concentration - - Weight 68 kg (150 lb) 02/16/2025 11:51 AM EDT Height 160 cm (5' 3 ) 02/16/2025 11:51 AM EDT Body Mass Index 26.57 02/16/2025 11:51 AM EDT Plan of Treatment Health Maintenance Due Date Last Done Comments Meningococcal B Vaccine (1 of 2 - Standard) 2018 Cervical Cancer Screening: Pap Smear 2023 Depression Screening 05/28/2024 Influenza Vaccine (#1) 2025 , 02/20/2023, 03/09/2022, Additional history exists Social Influencers of Health Screening 02/16/2025 DTaP,Tdap,and Td Vaccines (7 - Td or Tdap) 03/18/2025 03/18/2015, 08/24/2006, 09/01/2003, Additional history exists Gonorrhea/Chlamydia Screening 02/16/2026 02/16/2025, 11/15/2023 RSV Immunization Adult Patients (1 - 1-dose 75+ series) 2077 Hepatitis B Vaccines Completed 02/02/2003, 2002, 2002 HIB Vaccines Completed 09/01/2003, 10/26, 2002 IPV Vaccines Completed 08/24/2006, 01/26, 2002, Additional history exists MMR Vaccines Completed 08/27/2006, 09/01/2003 Varicella Vaccines Completed 08/27/2006, 09/01/2003 HPV Vaccines Completed 09/21/2015, 02/26, 05/13/2012 Hepatitis A Vaccines Completed 05/02/2018, 05/04/20 Meningococcal ACWY Vaccine Completed 02/19/2019, Hepatitis C Screening Completed 11/15/2023 Pneumococcal Vaccine: Pediatrics (0 to 5 Years) and At-Risk Patients (6 to 49 Years) Completed 12/17/2023, 02/05/2003, 2002, Additional history exists COVID-19 Vaccine Completed 05/14/2024, , 11/08/2020, Additional history exists HIV Screening Completed 06/12/2024 RSV Immunization Patients Under 20 months Aged Out No longer eligible based on patient's age to complete this topic Procedures Procedure Name Priority Date/Time Associated Diagnosis Comments CHLAMYDIA TRACHOMATIS AND NEISSERIA GONORRHOEAE PCR STAT 02/16/2025 3:23 PM EDT CULTURE HERPES SIMPLEX VIRUS STAT 02/16/2025 3:23 PM EDT CBC WITH AUTO DIFFERENTIAL STAT 02/16/2025 1:00 PM EDT CBC AND DIFFERENTIAL STAT 02/16/2025 1:00 PM EDT BASIC METABOLIC PANEL STAT 02/16/2025 1:00 PM EDT from Last 3 Months Results * Chlamydia trachomatis and Neisseria gonorrhoeae molecular study (02/16/2025 3:23 PM EDT) Neisseria gonorrhoeae PCR Negative Negative LAB MOLECULAR DIAGNOSTICS METHOD 02/17/2025 9:52 AM EDT [facility] Chlamydia trachomatis PCR Negative Negative LAB MOLECULAR DIAGNOSTICS METHOD 02/17/2025 9:52 AM EDT [facility] Urine Urine specimen obtained by clean catch procedure / Unknown Non-blood Collection / Unknown 02/16/2025 3:23 PM EDT 02/16/2025 3:37 PM EDT us Rogers Pennington MD LAB MICROBIOLOGY - GENERAL ORD ERABLES Final Result [facility] [address] [place] [address], [place] [phone] * (ABNORMAL) Culture Herpes simplex virus (02/16/2025 3:23 PM EDT) Pathologist [facility] Specimen Source Urogenital - Vaginal 02/20/2025 2:08 PM EDT [facility] HSVC Interpretation Herpes Simplex Virus Type 1 ISOLATED(A) No Growth 02/20/2025 2:08 PM EDT [facility] Comment: This method utilizes standard tube culture methods with monoclonal antibody staining of CPE-positive cells. This procedure can detect and differentiate herpes type 1 and herpes type 2. Other viruses present in the specimen will not be identified. A negative result does not preclude viral infection. The viability of viral agents can be degraded if specimens are improperly collected or stored. The number of viable virus particles may be below the detection threshold. Test performed at [facility], [facility] [address] , [place] [address] Akosua Alvarado MD, PhD - Finance Accounting Internship Swab Vaginal structure / Unknown Non-blood Collection / Unknown 02/16/2025 3:23 PM EDT 02/16/2025 3:37 PM EDT us Rogers Pennington MD LAB MICROBIOLOGY - GENERAL ORD ERABLES Final Result [facility] [address] [place] [address] * (ABNORMAL) CBC auto differential (02/16/2025 1:00 PM EDT) Pathologist [facility] WBC 12.3(H) 4.8 - 10.8 K/mcL LAB HEMETOLOGY METHOD 02/16/2025 1:49 PM EDT [facility] RBC 4.60 3.80 - 5.50 M/mcL LAB HEMETOLOGY METHOD 02/16/2025 1:49 PM EDT [facility] Hemoglobin 13.2 12.0 - 18.0 g/dL LAB HEMETOLOGY METHOD 02/16/2025 1:49 PM EDT [facility] Hematocrit 41.6 36.0 - 48.0 % LAB HEMETOLOGY METHOD 02/16/2025 1:49 PM EDT [facility] MCV 91.2 79.0 - 98.0 FL LAB HEMETOLOGY METHOD 02/16/2025 1:49 PM EDT [facility] MCH 28.9 27.0 - 32.0 pcg LAB HEMETOLOGY [facility] MCHC 31.7(L) 32.0 - 37.0 g/dL LAB HEMETOLOGY METHOD 02/16/2025 1:49 PM EDT [facility] RDW 14.2 11.0 - 15.0 % LAB HEMETOLOGY METHOD 02/16/2025 1:[facility] Platelets 347 130 - 400 K/mcL LAB HEMETOLOGY METHOD 02/16/2025 1:49 PM [facility] MPV 10.0 7.0 - 11.0 FL LAB HEMETOLOGY METHOD 02/16/2025 1:49 [facility] NRBC 0.0 <1.0 % LAB HEMETOLOGY METHOD 02/16/2025 1:49 PM [facility] NRBC Absolute 0.00 <0.10 K/mcL LAB HEMETOLOGY METHOD 02/16/2025 1:49 PM [facility] Neutrophils Relative 75.3 % LAB HEMETOLOGY METHOD 02/16/2025 1:49 PM EDT [facility] Lymphocytes Relative 15.6 % LAB HEMETOLOGY METHOD 02/16[facility]2025 1:49 [facility] Monocytes Relative 7.5 % LAB HEMETOLOGY METHOD 02/16/2025 1:49 PM [facility] Eosinophils Relative 0.3 % LAB HEMETOLOGY METHOD 02/16/2025 1:49 [facility] Basophils Relative 0.7 % LAB HEMETOLOGY METHOD 02/16/2025 1:49 PM EDT [facility] Immature Granulocytes Relative 0.6 % LAB HEMETOLOGY METHOD 02/16/2025 1:49 PM EDT [facility] Neutrophils Absolute 9.26(H) 1.50 - 7.00 K/mcL LAB HEMETOLOGY METHOD 02/16/2025 1:49 PM EDT [facility] Lymphocytes Absolute 1.92 1.00 - 5.00 K/mcL LAB HEMETOLOGY METHOD 02/16/2025 1:49 PM EDT [facility] Monocytes Absolute 0.92 0.20 - 1.00 K/mcL LAB HEMETOLOGY METHOD 02/16/2025 1:49 PM EDT [facility] Eosinophils Absolute 0.04 0.00 - 0.50 K/mcL LAB HEMETOLOGY METHOD 02/16/2025 1:49 PM EDT [facility] Basophils Absolute 0.09 0.00 - 0.20 K/mcL LAB HEMETOLOGY METHOD 02/16/2025 1:49 PM EDT [facility] Immature Granulocytes Absolute 0.07(H) 0.00 - 0.03 K/mcL LAB HEMETOLOGY METHOD 02/16/2025 1:49 PM EDT [facility] Blood Venous blood specimen / Unknown Venipuncture / Unknown 02/16/2025 1:00 PM EDT 02/16/2025 1:36 PM EDT us Rogers Pennington MD LAB BLOOD ORDERABLES Final Res ult [facility] [address] [place] [address], * Basic metabolic panel (02/16/2025 1:00 PM EDT) Sodium 137 133 - 145 mmol/L LAB CHEMISTRY METHOD 02/16/2025 2:09 PM [facility] Potassium 4.4 3.5 - 5.5 mmol/L LAB CHEMISTRY METHOD 02/16/2025 2:09 PM [facility] Chloride 105 96 - 110 mmol/L LAB CHEMISTRY METHOD 02/16/2025 2:09 PM [facility] CO2 28 21 - 32 mmol/L LAB CHEMISTRY METHOD 02/16/2025 2:09 PM [facility] Anion Gap 4 3 - 11 LAB CHEMISTRY METHOD 02/16/2025 2:09 PM [facility] Glucose 84 70 - 100 mg/dL LAB CHEMISTRY METHOD 02/16/2025 2:09 PM [facility] BUN 12 5 - 25 mg/dL LAB CHEMISTRY METHOD 02/16/2025 2:09 PM [facility] Creatinine 0.74 0.50 - 1.30 mg/dL LAB CHEMISTRY METHOD 02/16/2025 2:09 PM [facility] eGFR 117 >=60 mL/min/1. 73m2 LAB CHEMISTRY METHOD 02/16/2025 2:09 PM [facility] Comment:Calculation based on the Chronic Kidney Disease Epidemiology Collaboration (CKD-EPI) equation refit without adjustment for race. BUN/Creatinine Ratio 16.2 LAB CHEMISTRY METHOD 02/16/2025 2:09 PM [facility] Calcium 9.0 8.5 - 10.5 mg/dL LAB CHEMISTRY METHOD 02/16/2025 2:09 PM [facility] Blood Venous blood specimen / Unknown Venipuncture / Unknown 02/16/2025 1:00 PM EDT 02/16/2025 2:09 PM EDT us Rogers Pennington MD LAB BLOOD ORDERABLES Final Res ult [facility] [address] [place] [address], from Last 3 Months Additional Health Concerns Infection Onset Date Last Indicated Herpes simplex 02/16/2025 02/16/2025 Insurance MEDICAID - [place] Care Teams Independent Jeweler Relationship Specialty Start Date End Date Physician, No Pcp PCP - General 02/16/25
--- OUTSIDE RECORDS SUMMARY | 2025-02-26 14:35 | XMS_ITS | Encounter Summary ---
Author Organization [employer] Address [address] [facility] [address] 7t [place] [address] Care Team Providers Care Senior Escrow Officer Name Role Phone Padmini Walton MD Primary Care Provider [phone] Hany Davis MD Unavailable Jalyn Sheriff OD Unavailable [phone] Encounter Details Date Type Department Care Team (Latest Contact Info) Description 02/25/2025 Travel Social History Tobacco Use Types Packs/Day Years [...] Description 04/03/2025 10:30 AM EST Procedure Visit [facility] [address] [place] [address] Padmini Walton MD [address] [place] [address] documented as of this encounter Visit Diagnoses Not on filedocumented in this encounter Additional Health Concerns Assessment Noted Time PHQ-9 Depression Total Score: 0 02/20/20 25 11:40 AM EDT documented as of this encounter Care Teams Senior Escrow Officer Relationship Specialty Start Date End Date Padmini Walton MD [address] [place] [address] PCP - General Family Medicine 05/28/18 Hany Davis MD [address] [place] [address], [address] [place] [address] Plastic Surgery 05/13/24 Jalyn Sheriff OD [address] [place] [address] Optometry 05/13/24 documented as of this encounter
--- OUTSIDE RECORDS SUMMARY | 2025-02-26 14:35 | XMS_ITS | Encounter Summary ---
Author Organization [employer] Address [address] [facility] 7 [place] [address] Care Team Providers Care Skid Man Name Role Phone Padmini Walton MD Primary Care Provider [phone] Hany Davis MD Unavailable Jalyn Sheriff OD Unavailable [phone] Reason for Visit * Reason Onset Date Comments New med script 07/04/2022 Encounter Details Date Type Department Care Team (Late st Contact Info) Description 07/04/2022 Telephone [facility] [address] [place] [address] Padmini Walton MD [address] [place] [address] New med script Social History Tobacco Use Types Packs/Day Years [...] encounter Miscellaneous Notes * Telephone Encounter - Mileyrolan Pereyra Cindy - 07/04/2022 1:34 PM EST Santiago Jolly with [facility] requesting a new script for Needle, Disp, (B-D DISP NEEDLE 25GX1 ) 25G X 1 misc For the Needle, Disp (B-D Disp Needle 25GX11/2 ) or the 25GX5/8 because they currently do not havethe regular prescription ones. Please call Rik for any additional information at [phone] documented in this encounter Plan of Treatment Upcoming Encounters Date Type Department Care Team (Late st Contact Info) Description 04/03/2025 10:30 AM EST Procedure Visit [facility] [address] [place] [address] [phone] Padmini Walton MD [address] [place] [address] documented as of this encounter Visit Diagnoses Not on filedocumented in this encounter Care Teams Skid Man Relationship Specialty Start Date End Date Padmini Walton MD [address] [place] [address] PCP - General Family Medicine 05/28/18 Hany Davis MD [address] [place] [address], [address] [address] Plastic Surgery 05/13/24 Jalyn Sheriff OD [address] [place] [address] Optometry 05/13/24 documented as of this encounter
--- OUTSIDE RECORDS SUMMARY | 2025-02-26 14:35 | XMS_ITS | Encounter Summary ---
Author Organization [employer] Address [address] [facility] 7t [place] [address] Care Team Providers Care Industrial Spray Painter Name Role Phone Padmini Walton MD Primary Care Provider [phone] Hany Davis MD Unavailable Jalyn Sheriff OD Unavailable [phone] Encounter Details Date Type Department Care Team (Late Contact Info) Description 05/17/2022 Orders Only [facility] [address] [place] [address] Padmini Walton MD [address] [place] [address] Social History Tobacco Use Types Packs/Day Years Used Date Smoking Tobacco: Never Assessed Comments Unknown Sex and Gender Information Value Date Recorded Sex Assigned at Female 03/27/2022 10:20 AM EDT Legal Sex Female 1:53 PM EST Gender Identity Male 04/19/2022 1:53 PM EST Sexual Orientation Lesbian or Kumari 03/27/2022 10 :20 AM EDT COVID-19 Exposure Response Date Recorded In the last 10 days, have yo u been in contact with someone who was confirmed or suspected to have Coronavirus/COVID-19? No / Unsure 05/10/2022 2:10 PM EST documented as of this encounter Plan of Treatment Upcoming Encounters Date Type Department Care Team (Late Contact Info) Description 04/03/2025 10:30 AM EST Procedure Visit [facility] MEDICINE [address] [place], [place] [phone] Padmini Walton MD [address] [place] [address] documented as of this encounter Visit Diagnoses Not on filedocumented in this encounter Care Teams Industrial Spray Painter Relationship Specialty Start Date End Date Padmini Walton MD [address] [place], [place] [phone] PCP - General Family Medicine 05/28/18 Hany Davis MD [address] [place] [address], [address] [address] Plastic Surgery 05/13/24 Jalyn Sheriff OD [address] [place] [address] Optometry 05/13/24 documented as of this encounter
--- OUTSIDE RECORDS SUMMARY | 2025-02-26 14:35 | XMS_ITS | Encounter Summary ---
Author Organization [employer] Address 75 [facility] 7t [place] [address] Care Team Providers Care Hr Receptionist Name Role Phone Padmini Walton MD Primary Care Provider [phone] Hany Davis MD Unavailable Jalyn Sheriff OD Unavailable [phone] Reason for Visit * Reason Onset Date Comments Med Refill 02/26/2025 Encounter Details Date Type Department Care Team (Late st Contact Info) Description 02/26/2025 Refill [facility] MEDICINE [address] [place], [place] [phone] Padmini Walton MD [address] [place] [address] Gender dysphoria Social History Tobacco Use Types [...] Description 04/03/2025 10:30 AM EST Procedure Visit [facility] MEDICINE [address] [place] [address] Padmini Walton MD [address] [place] [address] documented as of this encounter Visit Diagnoses Diagnosis Gender dysphoria documented in this encounter Additional Health Concerns Assessment Noted Time PHQ-9 Depression Total Score: 0 02/20/20 25 11:40 AM EDT documented as of this encounter Care Teams Hr Receptionist Relationship Specialty Start Date End Date Padmini Walton MD [address] [place] [address] PCP - General Family Medicine 05/28/18 Hany Davis MD [address] [place] [address], [address] [phone] Plastic Surgery 05/13/24 Jalyn Sheriff OD [address] [place] [address] Optometry 05/13/24 documented as of this encounter
--- OUTSIDE RECORDS SUMMARY | 2025-02-26 14:35 | XMS_ITS | Encounter Summary ---
Author Organization [employer] Address [address] [facility] 7t [place] [address] Care Team Providers Care Counter Tender Name Role Phone Padmini Walton MD Primary Care Provider [phone] Hany Davis MD Unavailable Jalyn Sheriff OD Unavailable [phone] Reason for Visit * Reason Onset Date Comments Med Refill 08/07/2023 Encounter Details Date Type Department Care Team (Late st Contact Info) Description 08/07/2023 Refill [facility] [address] [place], [place] [phone] Padmini Walton MD [address] [place] [address] Gender dysphoria Social History Tobacco Use Types [...] Description 04/03/2025 10:30 AM EST Procedure Visit [facility] [address] [place] [address] Padmini Walton MD [address] [place] [address] documented as of this encounter Visit Diagnoses Diagnosis Gender dysphoria documented in this encounter Additional Health Concerns Assessment Noted Time PHQ-9 Depression Total Score: 2 12/12/19 23 11:45 AM EDT documented as of this encounter Care Teams Counter Tender Relationship Specialty Start Date End Date Padmini Wlaton MD [address] [place] [address] PCP - General Family Medicine 05/28/18 Hany Davis MD [address] [place] [address], [address] [place] [address] [phone] Plastic Surgery 05/13/24 Jalyn Sheriff OD [address] [place] [phone] Optometry 05/13/24 documented as of this encounter
--- OUTSIDE RECORDS SUMMARY | 2025-02-26 14:36 | XMS_ITS | Encounter Summary ---
Author Organization [employer] Address 75 [facility] 7t [place] [address] Care Team Providers Care Butane Compressor Operator Name Role Phone Padmini Walton MD Primary Care Provider [phone]- [phone] Hany Davis MD Unavailable Jalyn Sheriff OD Unavailable [phone] Reason for Visit * Reason Onset Date Comments Med Refill 04/07/2024 Encounter Details Date Type Department Care Team (Late st Contact Info) Description 04/07/2024 Refill [facility] MEDICINE 230 [place], [place] [phone] Padmini Walton MD 230 [place] [address] Social History Tobacco Use Types Packs/Day Years Used Date Smoking Tobacco: Never Passive Smoke Exposure: Never Smokeless Tobacco: Never Depression Answer Date Recorded Patient Health Questionnaire-9 Score 12 12/19/2023 Patient Health Questionnaire-9 Score 12 12/19/2023 Last PHQ-9: Questionnaire Data Not on file 0 12/19/2023 Housing Stability Answer Date Recorded What is your housing situation today? I am not s ure 12/17/[address] you li ve. Do you have problems with any of the following? None of the above 12/17/2023 Food Insecurity Answer Date Recorded Within the [...] the past 12 months, has t he [employer], gas, oil or water [employer] threatened to shut off services in your home? No 12/17/2023 Depression Answer Date Recorded Patient Health Questionnaire-2 Score 4 12/19/2023 Internet Access Answer Date Recorded Internet Access Q1 No 01/25/2024 Internet Access Q2 I do not want or need it 12/28 Comments Unknown Sex and Gender Information Value [...] Description 04/03/2025 10:30 AM EST Procedure Visit [facility] MED[facility]INE [address] [place] [address] Padmini Walton MD [address] [place] [address] documented as of this encounter Visit Diagnoses Not on filedocumented in this encounter Additional Health Concerns Assessment Noted Time PHQ-9 Depression Total Score: 12 024 1:33 PM EDT documented as of this encounter Care Teams Butane Compressor Operator Relationship Specialty Start Date End Date Padmini Walton MD [address] [place] [address] PCP - General Family Medicine 05/28/18 Hany Davis MD [address] [place] [address], [address] [address] Plastic Surgery 05/13/24 Jalyn Sheriff OD [address] [place] [address] Optometry 05/13/24 documented as of this encounter
--- OUTSIDE RECORDS SUMMARY | 2025-02-26 14:36 | XMS_ITS | Encounter Summary ---
Author Organization [employer] Address 75 [facility] 7t [place] [address] Care Team Providers Care Thermal Cutter Hand Name Role Phone Padmini Walton MD Primary Care Provider [phone]- [phone] Hany Davis MD Unavailable Jalyn Sheriff OD Unavailable [phone] Encounter Details Date Type Department Care Team (Late st Contact Info) Description 09/24/2024 Orders Only [facility] MEDICINE 230 [place] [address] Padmini Walton MD 230 [place] [address] Gender dysphoria Social History Tobacco Use Types [...] Description 04/03/2025 10:30 AM EST Procedure Visit [facility] MED[facility]INE [address] [place] [address] Padmini Walton MD [address] [place] [address] documented as of this encounter Visit Diagnoses Diagnosis Gender dysphoria documented in this encounter Additional Health Concerns Assessment Noted Time PHQ-9 Depression Total Score: 12 024 1:33 PM EDT documented as of this encounter Care Teams Thermal Cutter Hand Relationship Specialty Start Date End Date Padmini Walton MD [address] [place] [address] PCP - General Family Medicine 05/28/18 Hany Davis MD [address] [place] [address], [address] [place] [address] Plastic Surgery 05/13/24 Jalyn Sheriff OD [address] [place] [address] Optometry 05/13/24 documented as of this encounter
--- OUTSIDE RECORDS SUMMARY | 2025-02-26 14:36 | XMS_ITS | Encounter Summary ---
Author Organization [employer] Address 75 [facility] 7t [place] [address] Care Team Providers Care Track Welder Name Role Phone Padmini Walton MD Primary Care Provider [phone]- [phone] Hany Davis MD Unavailable Jalyn Sheriff OD Unavailable [phone] Reason for Visit * Reason Comments Med Refill Encounter Details Date Type Department Care Team (Late st Contact Info) Description 11/02/2023 Refill [facility] MEDICINE 230 [place] [address] Padmini Walton MD 230 [place] [address] Mild intermittent asthma without complication Social History Tobacco Use Types Packs/Day Years [...] Procedure Visit [facility] MEDICINE 230 [place] [address] Padmini Walton MD [address] [place] [address] documented as of this encounter Visit Diagnoses Diagnosis Mild intermittent asthma without complication documented in this encounter Additional Health Concerns Assessment Noted Time PHQ-9 Depression Total Score: 2 12/12/19 23 11:45 AM EDT documented as of this encounter Care Teams Track Welder Relationship Specialty Start Date End Date Padmini Walton MD 230 [place] [address] PCP - General Family Medicine 05/28/18 Hany Davis MD [address] [place] [address], [address] [place] [address] [id number] Plastic Surgery 05/13/24 Jalyn Sheriff OD [address] [place] [address] Optometry 05/13/24 documented as of this encounter
--- OUTSIDE RECORDS SUMMARY | 2025-02-26 14:36 | XMS_ITS | Encounter Summary ---
Author Organization [employer] Address 75 [facility] 7t [place] [address] Care Team Providers Care Registered Public Surveyor Name Role Phone Padmini Walton MD Primary Care Provider [phone]- [phone] Hany Davis MD Unavailable Jalyn Sheriff OD Unavailable [phone] Reason for Visit * Reason Onset Date Comments Nurse Triage 09/24/2024 Encounter Details Date Type Department Care Team (Late st Contact Info) Description 09/24/2024 Telephone [facility] MEDICINE 230 [place], [place] [phone] Padmini Walton MD 230 [place], [place] [phone] Nurse Triage Social History Tobacco Use Types Packs/Day Years [...] the past 12 months, has t he [employer], gas, oil or water [employer] threatened to shut off services in your [...] encounter Miscellaneous Notes * Telephone Encounter - Cookie Cartagena RN - 09/24/2024 11:27 AM EDT Triage call Pt reports middle left sided back pain. Pt reports this pain used to come and go but, for the last 3 days has been constant. Pt denies injury, overuse. Neg for numbness but, reports pain radiates to upper back. Pt reports taking motrin yesterday without effect. Pt is advised to alternate ibuprofen / tylenol q4-6 hrs today and apply ice/heat with rest. Pt agrees with home care. Pt reports hot shower did relieve the discomfort. Pt is drinking adequate liquids. ASK apt with Dr Tolbert 09/26/24 @ 1200pm. Pt agrees with disposition. Insurance is verified as active prior to booking. Protocol Used: Back Pain (Adult) Protocol-Based Disposition: See in Office or Video Visit within 3 Days Video visit not offered Positive Triage Questions: * Moderate back pain (e.g., interferes with normal activities) and present > 3 days * Patient wants to be seen * All higher-acuity triage questions were negative Care Advice Discussed: * Reassurance and Education - Back Pain * Cold or Heat * Sleep * Continue Activity * Pain Medicines * Pain Medicines - Extra Notes and Warnings * Reasons To Call Back - Fever occurs - Numbness or weakness occurs - Loss of control of your bladder or bowel - Severe pain not better after taking pain medicines - Pain begins to shoot into the leg - Pain lasts over 2 weeks - Pain becomes worse - You become worse * Telephone Encounter - Merlin Bowernandez - 09/24/2024 10:26 AM EDT Symptom: Back Pain - Not From Injury Outcome: Talk to a nurse or provider within 15 minutes Reason: Can't walk (unless normally can't walk) The caller accepted this outcome. Contact pt at [phone] documented in this encounter Plan of Treatment Upcoming Encounters Date Type Department Care Team (Late st Contact Info) Description 04/03/2025 10:30 AM EST Procedure Visit [facility]INE [address] [place] [address] Padmini Walton MD 230 [place] [address] documented as of this encounter Visit Diagnoses Not on filedocumented in this encounter Additional Health Concerns Assessment Noted Time PHQ-9 Depression Total Score: 12 12/18/ 024 1:33 PM EDT documented as of this encounter Care Teams Registered Public Surveyor Relationship Specialty Start Date End Date Padmini Walton MD 230 [place] [address] PCP - General Family Medicine 05/28/18 Hany Davis MD [address] [place] [address], [address] [place] [address] Plastic Surgery 05/13/24 Jalyn Sheriff OD [address] [place] [address] Optometry 05/13/24 documented as of this encounter
--- OUTSIDE RECORDS SUMMARY | 2025-02-26 14:36 | XMS_ITS | Encounter Summary ---
Author Organization [employer] Address 75 [facility] 7t [place] [address] Care Team Providers Care Telescope Operator Name Role Phone Padmini Walton MD Primary Care Provider [phone]- [phone] Hany Davis MD Unavailable Jalyn Sheriff OD Unavailable [phone] Reason for Visit * Reason Onset Date Comments Med Refill 08/24/2024 Encounter Details Date Type Department Care Team (Late st Contact Info) Description 08/24/2024 Refill [facility] MEDICINE 230 [place], [place] [phone] Padmini Walton MD 230 [place] [address] Gender dysphoria Social History Tobacco Use Types [...] Description 04/03/2025 10:30 AM EST Procedure Visit [facility] MEDICINE [address] [place] [address] Padmini Walton MD [address] [place] [address] documented as of this encounter Visit Diagnoses Diagnosis Gender dysphoria documented in this encounter Additional Health Concerns Assessment Noted Time PHQ-9 Depression Total Score: 12 024 1:33 PM EDT documented as of this encounter Care Teams Telescope Operator Relationship Specialty Start Date End Date Padmini Walton MD [address] [place] [address] PCP - General Family Medicine 05/28/18 Hany Davis MD [address] [place] [address], [address] [phone] Plastic Surgery 05/13/24 Jalyn Sheriff OD [address] [place] [address] Optometry 05/13/24 documented as of this encounter
--- OUTSIDE RECORDS SUMMARY | 2025-02-26 14:36 | XMS_ITS | Encounter Summary ---
Author Organization [employer] Address 75 [facility] 7t [place] [address] Care Team Providers Care Instructor Apparel Manufacture Name Role Phone Padmini Walton MD Primary Care Provider [phone]- [phone] Hany Davis MD Unavailable Jalyn Sheriff OD Unavailable [phone] Reason for Visit * Reason Onset Date Comments Med Refill 05/05/2024 Encounter Details Date Type Department Care Team (Late st Contact Info) Description 05/05/2024 Refill [facility] MEDICINE 230 [place], [place] [phone] Padmini Walton MD [address] [place] [address] Gender dysphoria Social History Tobacco Use Types [...] Description 04/03/2025 10:30 AM EST Procedure Visit [facility] MEDICINE [address] [place] [address] Padmini Walton MD [address] [place] [address] documented as of this encounter Visit Diagnoses Diagnosis Gender dysphoria documented in this encounter Additional Health Concerns Assessment Noted Time PHQ-9 Depression Total Score: 12 024 1:33 PM EDT documented as of this encounter Care Teams Instructor Apparel Manufacture Relationship Specialty Start Date End Date Padmini Walton MD [address] [place] [address] PCP - General Family Medicine 05/28/18 Hany Davis MD [address] [place] [address], [address] [phone] Plastic Surgery 05/13/24 Jalyn Sheriff OD [address] [place] [address] Optometry 05/13/24 documented as of this encounter
--- OUTSIDE RECORDS SUMMARY | 2025-02-26 14:36 | XMS_ITS | Encounter Summary ---
Author Organization [employer] Address 75 [facility] 7t [place] [address] Care Team Providers Care Fork Truck Operator Name Role Phone Padmini Walton MD Primary Care Provider [phone]- [phone] Hany Davis MD Unavailable Jalyn Sheriff OD Unavailable [phone] Reason for Visit * Reason Onset Date Comments Appointment Request 02/13/2024 Encounter Details Date Type Department Care Team (Late st Contact Info) Description 02/13/2024 Telephone [facility] MEDICINE 230 [place], [place] [phone] Padmini Walton MD 230 [place], [place] [phone] Appointment Request Social History Tobacco Use Types [...] the past 12 months, has t he [employer], gas, oil or water [employer] threatened to shut off services in your [...] encounter Miscellaneous Notes * Telephone Encounter - Sandy Huntley - 02/13/2024 10:33 AM EDT Tc from pt calling in to inform was unable to show up to today visit. Thought it was for 10:30 instead of 10:15. Pt informed will take injection at home today but would like to schedule his next apptfor his injections. documented in this encounter Plan of Treatment Upcoming Encounters Date Type Department Care Team (Late st Contact Info) Description 04/03/2025 10:30 AM EST Procedure Visit [facility] MEDICINE 230 [place] [address] Padmini Walton MD 230 [place] [address] documented as of this encounter Visit Diagnoses Not on filedocumented in this encounter Additional Health Concerns Assessment Noted Time PHQ-9 Depression Total Score: 12 07/24/2 024 1:33 PM EDT documented as of this encounter Care Teams Fork Truck Operator Relationship Specialty Start Date End Date Padmini Walton MD [address] [place] [address] PCP - General Family Medicine 05/28/18 Hany Davis MD [address] [place] [address], [address] [place] [address] Plastic Surgery 05/13/24 Jalyn Sheriff OD [address] [place] [address] Optometry 05/13/24 documented as of this encounter
--- OUTSIDE RECORDS SUMMARY | 2025-02-26 14:36 | XMS_ITS | Encounter Summary ---
Author Organization [employer] Address 75 [facility] 7t [place] [address] Care Team Providers Care Dental Officer Name Role Phone Padmini Walton MD Primary Care Provider [phone]- [phone] Hany Davis MD Unavailable Jalyn Sheriff OD Unavailable [phone] Reason for Visit * Reason Onset Date Comments Med Refill 11/14/2024 Encounter Details Date Type Department Care Team (Late st Contact Info) Description 11/14/2024 Refill [facility] MEDICINE 230 [place], [place] [phone] Padmini Walton MD 230 [place] [address] Gender dysphoria Social History Tobacco Use Types [...] Description 04/03/2025 10:30 AM EST Procedure Visit [facility] MEDICINE [address] [place] [address] Padmini Walton MD [address] [place] [address] documented as of this encounter Visit Diagnoses Diagnosis Gender dysphoria documented in this encounter Additional Health Concerns Assessment Noted Time PHQ-9 Depression Total Score: 12 024 1:33 PM EDT documented as of this encounter Care Teams Dental Officer Relationship Specialty Start Date End Date Padmini Walton MD [address] [place] [address] PCP - General Family Medicine 05/28/18 Hany Davis MD [address] [place] [address], [address] [phone] Plastic Surgery 05/13/24 Jalyn Sheriff OD [address] [place] [address] Optometry 05/13/24 documented as of this encounter
--- OUTSIDE RECORDS SUMMARY | 2025-02-26 14:36 | XMS_ITS | Encounter Summary ---
Author Organization [employer] Address 75 [facility] 7t [place] [address] Care Team Providers Care Log Preparer Name Role Phone Padmini Walton MD Primary Care Provider [phone]- [phone] Hany Davis MD Unavailable Jalyn Sheriff OD Unavailable Reason for Visit * Reason Comments Med Refill Encounter Details Date Type Department Care Team (Late st Contact Info) Description 01/30/2024 Refill [facility] MEDICINE 230 [place] [address] Padmini Walton MD 230 [place] [address] Mild intermittent asthma without complication Social History [...] Description 04/03/2025 10:30 AM EST Procedure Visit [facility] MEDICINE [address] [place] [address] Padmini Walton MD [address] [place] [address] documented as of this encounter Visit Diagnoses Diagnosis Mild intermittent asthma without complication documented in this encounter Additional Health Concerns Assessment Noted Time PHQ-9 Depression Total Score: 12 024 1:33 PM EDT documented as of this encounter Care Teams Log Preparer Relationship Specialty Start Date End Date Padmini Walton MD [address] [place] [address] PCP - General Family Medicine 05/28/18 Hany Davis MD [address] [place] [address], [address] [place] [address] Plastic Surgery 05/13/24 Jalyn Sheriff OD [address] [place] [address] Optometry 05/13/24 documented as of this encounter
[2025-02-26 16:35] LABS: Hematocrit 38.7 % (37.0-47.0); Hemoglobin 12.2 g/dl (12.0-16.0); Mean Corpuscular HGB Conc 31.5 g/dl (31.0-35.0); Mean Corpuscular Hemoglobin 29.2 pg (27.0-33.0); Mean Corpuscular Volume 92.6 fL (80.0-98.0); NRBC Abs Auto 0.040 X10*3/uL (0.0-0.012); NRBC Pct Auto 0.7 /100WBC (0.0-0.2); Platelet Count 317 X10*3/uL (160-400); Red Blood Count 4.18 X10*6/uL (4.20-5.50); White Blood Count 5.4 X10*3/uL (4.8-10.8)
[2025-02-26 16:48] LABS: Alanine Aminotransferase 19 U/L (0-31); Albumin Level 4.3 g/dL (3.5-5.0); Alkaline Phosphatase 83 U/L (39-117); Aspartate Amino Transferase 29 U/L (5-31); Cholesterol 229 mg/dL (<200); HDL Cholesterol 36 mg/dL (>40); Total Protein 7.3 g/dL (6.5-8.0); Triglycerides 101 mg/dL (<150)
[2025-02-27 05:41] LABS: Syphilis Screen Nonreactive (Nonreactive)
[2025-02-27 05:50] LABS: HIV Num 1 0.04 S/CO (0.00-0.99); ~HepC Num1 0.40 S/CO (0.00-0.79); ~Hepatitis C Antibody Nonreactive (Nonreactive)
[2025-02-27 09:02] LABS: CT PCR Urine NOT DETECTED (Not Detect.); NG PCR Urine NOT DETECTED (Not Detect.)
== END 2025-02-26 13:09 | disposition home or self-care (01) ==
LOC: HO.HHCL 13:08
PROVIDERS: PCP Family Medicine; Visit Provider Family Medicine
DX: Z11.3 Encounter for screening for infections with a predominantly sexual mode of transmission (principal); Z11.4 Encounter for screening for human immunodeficiency virus [HIV]; Z20.2 Contact with and (suspected) exposure to infections with a predominantly sexual mode of transmission; B00.9 Herpesviral infection, unspecified; F64.9 Gender identity disorder, unspecified; E78.5 Hyperlipidemia, unspecified
CPT/HCPCS: 80061; 80076; 84403; 85027; 86695; 86696; 86780; 86803; 87389; 87491; 87591